=== PATIENT | male | born 1980 | race Caucasian/White ===

== ENCOUNTER 2016-11-26 23:50 | Emergency (ER) | payer SELFPAY ==
[2016-11-27 00:38] LABS: HEMATOCRIT 38.7 % (42.0-54.0); LYMPHOCYTES 33.6 % (15-50); MCH 28.7 pg (26.0-34.0); MCHC 33.6 g/dL (31.0-37.0); MCV 85.4 fL (80.0-100.0); MEAN PLATELET VOLUME 10.8 fL (7.4-10.4); RBC 4.53 10x6/uL (4.20-6.10); WBC 6.9 10x3/uL (4.8-10.8)
[2016-11-27 00:41] LABS: PLATELET COUNT 203 10x3/uL (130-400)
[2016-11-27 00:49] LABS: ALKALINE PHOSPHATASE 80 U/L (46-116); ALT (SGPT) 27 U/L (10-68); BILIRUBIN - TOTAL 0.47 mg/dL (0.2-1.3); CALC OSMOLALITY 279 mosm/kg (275-300); CALCIUM 9.1 mg/dL (8.5-10.1); CARBON DIOXIDE 26.7 mmol/L (21.0-32.0); CHLORIDE - SERUM 103 mmol/L (98-107); CREATININE - SERUM 0.8 mg/dL (0.6-1.3); GLUCOSE 86 mg/dL (74-106); POTASSIUM - SERUM 3.3 mmol/L (3.5-5.1); PROTEIN - SERUM 7.7 g/dL (6.4-8.2); SODIUM 141 mmol/L (136-145); TROPONIN-I < 0.017 ng/mL (0.000-0.060); UREA NITROGEN 13 mg/dL (7-18); eGFR NON AFRICAN AMERICAN > 90 mL/min (90-120)
== END 2016-11-27 01:26 | disposition home or self-care (01) ==
LOC: D.ER 23:50
PROVIDERS: Emergency Medicine; Physician Assistant Medical
DX: R07.89 Other chest pain (principal); F41.9 Anxiety disorder, unspecified

== ENCOUNTER 2017-02-28 18:20 | Emergency (ER) | payer SELFPAY | END 2017-02-28 18:51 | disposition left against medical advice (07) | LOC: D.ER 18:20 | DX: S61.052A Open bite of left thumb without damage to nail, initial encounter (principal); W55.01XA Bitten by cat, initial encounter; Y93.89 Activity, other specified; Y92.89 Other specified places as the place of occurrence of the external cause ==

== ENCOUNTER 2018-05-04 19:33 | Emergency (ER) | payer SELFPAY ==
[~2018-05-04] VITALS: Ht 182.9 cm; Wt 86.4 kg
[2018-05-04 19:43] VITALS: Ht 182.9 cm; Wt 86.4 kg
[2018-05-04 21:52] LABS: BASOPHILS 0.4 % (0-2); EOSINOPHILS 2.5 % (0-7); HEMATOCRIT 37.1 % (42.0-54.0); HEMOGLOBIN 12.5 g/dL (13.5-17.5); IMMATURE GRANULOCYTES 0.1 % (0-5); LYMPHOCYTES 23.6 % (15-50); MCH 29.3 pg (26.0-34.0); MCHC 33.7 g/dL (31.0-37.0); MCV 86.9 fL (80.0-100.0); MEAN PLATELET VOLUME 11.1 fL (7.4-10.4); MONOCYTES 6.6 % (2-11); NEUTROPHILS 66.8 % (40-80); PLATELET COUNT 170 10x3/uL (130-400); RBC 4.27 10x6/uL (4.20-6.10); RDW 12.9 % (11.5-14.5); WBC 8.1 10x3/uL (4.8-10.8)
[2018-05-04 22:02] LABS: APTT 22.7 SECONDS (22.8-39.4); INR 1.06 (0.85-1.17); PROTIME 13.4 SECONDS (11.6-15.0)
[2018-05-04 22:07] LABS: ALKALINE PHOSPHATASE 91 U/L (46-116); ALT (SGPT) 16 U/L (10-68); BILIRUBIN - TOTAL 0.45 mg/dL (0.2-1.3); CALC OSMOLALITY 283 mosm/kg (275-300); CHLORIDE - SERUM 107 mmol/L (98-107); CREATININE - SERUM 0.7 mg/dL (0.6-1.3); GLUCOSE 94 mg/dL (74-106); POTASSIUM - SERUM 3.9 mmol/L (3.5-5.1); PROTEIN - SERUM 7.5 g/dL (6.4-8.2); SODIUM 142 mmol/L (136-145); UREA NITROGEN 14 mg/dL (7-18); eGFR NON AFRICAN AMERICAN > 90 mL/min (90-120)
[2018-05-04] MEDS ORDERED: KEFLEX500 MG PO (23:12)
[2018-05-04] MEDS ORDERED: CLEOCIN HCL300 MG PO (23:12)
[2018-05-04 23:34] VITALS: BP 106/73
== END 2018-05-04 23:35 | disposition home or self-care (01) ==
LOC: D.ER 19:33
PROVIDERS: Family Medicine
DX: S91.351A Open bite, right foot, initial encounter (principal); W59.11XA Bitten by nonvenomous snake, initial encounter; Y93.89 Activity, other specified; Y92.017 Garden or yard in single-family (private) house as the place of occurrence of the external cause

== ENCOUNTER 2018-09-13 15:06 | Emergency (ER) | payer SELFPAY ==
[~2018-09-13] VITALS: Ht 182.9 cm; Wt 81.8 kg
[~2018-09-13 15:06] MED LIST: CLEOCIN HCL300 MG PO; KEFLEX500 MG PO
[2018-09-13 15:28] VITALS: BP 106/70; Ht 182.9 cm; Wt 81.8 kg
[2018-09-13] MEDS ORDERED: CLEOCIN HCL300 MG PO (17:07)
== END 2018-09-13 17:15 | disposition home or self-care (01) ==
LOC: D.ER 15:06
DX: K04.7 Periapical abscess without sinus (principal)

== ENCOUNTER 2019-01-22 18:57 | Emergency (ER) | payer SELFPAY ==
[~2019-01-22] VITALS: Ht 182.9 cm; Wt 81.8 kg
[2019-01-22 19:17] VITALS: BP 149/82; Ht 182.9 cm; Wt 81.8 kg
[2019-01-22] MEDS ORDERED: MAG-OX 400 MG400 MG PO (19:21)
== END 2019-01-22 21:03 | disposition home or self-care (01) ==
LOC: D.ER 18:57
DX: R07.81 Pleurodynia (principal)

== ENCOUNTER 2019-04-06 19:49 | Emergency (ER) | payer SELFPAY ==
[~2019-04-06] VITALS: Ht 182.9 cm; Wt 81.8 kg
[~2019-04-06 19:49] MED LIST changes: +MAG-OX 400 MG400 MG PO
[2019-04-06 20:06] VITALS: BP 110/55; Ht 182.9 cm; Wt 81.8 kg
== END 2019-04-06 21:58 | disposition home or self-care (01) ==
LOC: D.ER 19:49
DX: S61.412A Laceration without foreign body of left hand, initial encounter (principal); W26.0XXA Contact with knife, initial encounter

== ENCOUNTER 2019-06-10 21:52 | Emergency (ER) | payer SELFPAY ==
[~2019-06-10] VITALS: Ht 182.9 cm; Wt 81.8 kg
[2019-06-10 22:03] VITALS: Ht 182.9 cm; Wt 81.8 kg
[2019-06-11] MEDS ORDERED: TORADOL10 MG PO (00:02)
[2019-06-11 00:18] VITALS: BP 125/73
== END 2019-06-11 00:18 | disposition home or self-care (01) ==
LOC: D.ER 21:52
DX: S86.912A Strain of unspecified muscle(s) and tendon(s) at lower leg level, left leg, initial encounter (principal); V89.9XXA Person injured in unspecified vehicle accident, initial encounter; Y93.89 Activity, other specified; Y92.89 Other specified places as the place of occurrence of the external cause

== ENCOUNTER 2019-07-12 21:59 | Emergency (ER) | payer SELFPAY ==
[~2019-07-12] VITALS: Ht 182.9 cm; Wt 81.8 kg
[~2019-07-12 21:59] MED LIST changes: +TORADOL10 MG PO
[2019-07-12 22:10] VITALS: Ht 182.9 cm; Wt 81.8 kg
[2019-07-12] MEDS ORDERED: VOLTAREN75 MG PO (23:36)
[2019-07-12] MEDS ORDERED: CLEOCIN HCL300 MG PO (23:36)
[2019-07-13 00:20] VITALS: BP 122/74
== END 2019-07-13 00:20 | disposition home or self-care (01) ==
LOC: D.ER 21:59
DX: K04.7 Periapical abscess without sinus (principal)

== ENCOUNTER 2019-09-30 00:16 | Emergency (ER) | payer OTHER ==
[~2019-09-30] VITALS: Ht 182.9 cm; Wt 84.1 kg
[~2019-09-30 00:16] MED LIST changes: +VOLTAREN75 MG PO
[2019-09-30 00:21] VITALS: Ht 182.9 cm; Wt 84.1 kg
[2019-09-30] MEDS ORDERED: NAPROSYN500 MG PO (00:46)
[2019-09-30] MEDS ORDERED: CLEOCIN HCL300 MG PO (00:46)
[2019-09-30 01:21] VITALS: BP 127/79
== END 2019-09-30 01:22 | disposition home or self-care (01) ==
LOC: D.ER 00:16
DX: K02.9 Dental caries, unspecified (principal); I42.9 Cardiomyopathy, unspecified